=== PATIENT | female | born 1990 | race Caucasian/White ===

== ENCOUNTER 2020-03-03 19:53 | Emergency (ER) | payer MEDICAID ==
[~2020-03-03] VITALS: Ht 167.6 cm; Wt 77.1 kg
[2020-03-03 20:15] VITALS: BP_SYST 148
--- NOTE | 2020-03-03 20:15 | NUR ---
RECEIVED AND IN ROOM, C/O RT STEVEN DISLOCATION
--- NOTE | 2020-03-03 20:25 | NUR ---
PUTTING ON CLOTHING AND SHOULDER BECAME DISLOCATED. STATED THIS HAS HAPPENED MANY TIMES IN THE PAST. CIRCULATION AND SENSATION INTACT.
[2020-03-03] MEDS ORDERED: PROPOFOL 200MG/ 20ML VIAL (DIPRIVAN) IV ONE (20:45)
[2020-03-03] MEDS ORDERED: fentaNYL CITRATE/PF 100 MCG/2 ML AMP IVP ONE ×3 (20:45→23:15)
[2020-03-03] MEDS ORDERED: ONDANSETRON HCL 4 MG/2 ML VIAL IVP ONE ×2 (20:45→23:45)
--- NOTE | 2020-03-03 22:33 | NUR ---
START OF CLOSED REDUCTION OF RIGHT SHOULDER WITH DR. GARCES PRESENT, RESPITORY THERAPY PRESENTS WITH PT ON NASAL CANULA 2L, BEBO RN AND ROSALBA EMT PRESENT. DIPRIVAN 100MG IV GIVEN WITH 0.9 NS BOLUS INFUSING, PT'S V/S STABLE. PT IS HYPERVERBAL, AAOX4. 2237 DIPRIVAN 70MG IVP WITH 0.9 NS BOLUS INFUSING, V/S STABLE. PT CONTINUES TO BE HYPERVERBAL AND NOT SEDATED. UNABLE TO SEDATE PT BY [id number]. PER DR. GARCES CONTINUE TO RUN 0.9 NS BOLUS AND STOP PROCEDURE AT THIS TIME. WAITING FOR NEW ORDERS. PT IS AAOX4, V/S: BP 206/110 P 89 O2 99% ON 2L, R 12, 9/10 PAIN TO RIGHT SHOULDER. NO DISTRESS NOTED.
[2020-03-03] MEDS ORDERED: MIDAZOLAM HCL 5 MG/5 ML VIAL IVP ONE ×2 (23:15→23:45)
[2020-03-03] MEDS ORDERED: KETAMINE 30 MG/3 ML SYRINGE IVP ONE (23:45)
--- NOTE | 2020-03-03 23:55 | NUR ---
SECOND ATTEMPT FOR MODERATE SEDATION STARTED WITH DR. GARCES, RT AT BEDSIDE. PT MEDICATED AND WAS GIVEN VERSED THEN KETAMINE. PT STILL AWAKE @2359. MEDICATED FURTHER WITH KETAMINE AND VERSED AND THEN FENTANYL. PT AWAKE AND CONTINUES TO BE HYPERVERBAL AND NOT SEDATED, RESISITING CLOSED REDUCTION OF RIGHT SHOULDER. MEDICATED FURTHER WITH MORE VERSED AND FENTANYL. PT STILL AWAKE AND YELLING AT STAFF. PROPOFOL WAS ADMINISTERED AND MD WAS ABLE TO ATTEMPT THE CLOSED REDUCTION. PT CONTINUES TO BE AWAKE THROUGHOUT, YELLING AND CURSING AT STAFF. REDUCTION COMPLETED AT 0022. PT RETURNED TO BASELINE @ 0024. V/S STABLE.
--- NOTE | 2020-03-04 00:09 | NUR ---
Bella ramirez in [facility] - 03/04/20 at 0013 by [facility] AT BEDSIDE DRAWING BLOOD.
[2020-03-04] MEDS ORDERED: KETAMINE 30 MG/3 ML SYRINGE ONE (00:22)
--- NOTE | 2020-03-04 00:25 | NUR ---
MD TO ORDER X-RAY OF SHOULDER TO CONFIRM PLACEMENT OF SHOULDER
--- NOTE | 2020-03-04 00:35 | NUR ---
PORTABLE X-RAY AT THE BEDSIDE.
[2020-03-04] MEDS ORDERED: PROPOFOL DRIP 100 ML IV ONE (00:36)
--- NOTE | 2020-03-04 00:45 | NUR ---
PT REPORTS THAT SHE "POPPED HER OWN SHOULDER BACK INTO PLACE" WHILE IN BED. PT IS AAOX4, TALKING ON HER CELLPHONE WITH HER BOYFRIEND.
[2020-03-04] MEDS ORDERED: fentaNYL CITRATE/PF 100 MCG/2 ML AMP IVP ONE (01:00)
[2020-03-04 01:48] VITALS: BP_SYST 162
== END 2020-03-04 01:48 | disposition home or self-care (01) ==
LOC: SED 19:53
DX: S43.004A Unspecified dislocation of right shoulder joint, initial encounter (principal); Z88.6 Allergy status to analgesic agent; X58.XXXA Exposure to other specified factors, initial encounter; Y93.89 Activity, other specified; Y92.89 Other specified places as the place of occurrence of the external cause; Y99.8 Other external cause status
CPT/HCPCS: 23650; 73020 ×2; 96374; 96375 ×2; 96376 ×2; 99152; 99285; J2250; J2405; J2704 ×2; J3010 ×2